=== PATIENT | female | born 1985 | race Caucasian/White ===

== ENCOUNTER 2021-08-22 16:29 | Inpatient (IN) | payer OTHER ==
[~2021-08-22] VITALS: Ht 162.6 cm; Wt 68.9 kg
[2021-08-22 18:13] LABS: RED BLOOD COUNT 3.87 M/UL (4.00-5.10); WHITE BLOOD COUNT 9.5 K/UL (4.5-11.0)
[2021-08-23] MEDS ORDERED: HEMOCYTE324 MG PO (15:49)
[2021-08-23] MEDS ORDERED: IBUPROFEN800 MG PO (15:49)
[2021-08-23] MEDS ORDERED: COLACE100 MG PO (15:49)
== END 2021-08-25 15:20 | disposition home or self-care (01) | DRG 807 ==
LOC: GENOP 16:29 → OB 17:16
PROVIDERS: Obstetrics & Gynecology; ADMIT Obstetrics & Gynecology
PROC: 10E0XZZ Delivery of Products of Conception, External Approach (ICD-10-PCS; principal; 2021-08-23)
PROC: 3E0234Z Introduction of Serum, Toxoid and Vaccine into Muscle, Percutaneous Approach (ICD-10-PCS; 2021-08-23)
PROC: 3E033VJ Introduction of Other Hormone into Peripheral Vein, Percutaneous Approach (ICD-10-PCS; 2021-08-23)
DX: O99.324 Drug use complicating childbirth (principal); Z37.0 Single live birth; O99.344 Other mental disorders complicating childbirth; F32.A Depression, unspecified; F41.9 Anxiety disorder, unspecified; Z3A.39 39 weeks gestation of pregnancy; F12.10 Cannabis abuse, uncomplicated; K21.9 Gastro-esophageal reflux disease without esophagitis; Z88.8 Allergy status to other drugs, medicaments and biological substances; Z82.49 Family history of ischemic heart disease and other diseases of the circulatory system; Z83.2 Family history of diseases of the blood and blood-forming organs and certain disorders involving the immune mechanism; Z81.8 Family history of other mental and behavioral disorders; Z88.5 Allergy status to narcotic agent; Z23 Encounter for immunization
CPT/HCPCS: 36415; 80307; 81001; 82800; 85014; 85018; 85025; 90715; J2405; J2590; J7120; U0002